=== PATIENT | female | born 1960 | race African-American/Black ===

== ENCOUNTER 2017-11-04 19:36 | Emergency (ER) | payer BC ==
[2017-11-04 19:53] VITALS: BP 172/93; PULSE 72; TEMP 98.5; BMI 45.1
--- NOTE | 2017-11-04 20:11 | PDOC ---
History of Present Illness - History of Present Illness Initial Comments: 11/04/17 20:52 Patient is a 57 F, with PMHx of depression, GERD, Hypertension, and DVT 2001 (1 week after taking control), who reports to the ER for 3 weeks of history of left shoulder/elbow pain. She describes her pain as a deep, achy feeling. She states her arm feels heavy and the pain in her shoulder feels similar to a deep panging you feel after hitting your elbow. She also described the feeling as similar to when she had her DVT from years ago and it is what prompted her to be seen in the ER. She says that she types a lot at work and it aches when she types. She states she took ibuprofen for the pain with little relief as well as Aleve with no relief. She states she experienced a recent brief episode of left-sided neck discomfort that resolved with massage. Denies numbness, chronic neck pain, pinched nerves. Denies recent injury to neck or shoulder. Denies chest pain, SOB. Social Hx: denies tobacco or EtOH use. Family Hx: Father:() Non-hodgkin's lymphoma; Mother: kidney cancer. Allergies: codeine, iodine,penicillins, shellfish, sulfa Medications: Amitrityline HCL 40 mg PO HS Symbicort 1 inh IH daily PRN Bupropion HCl[Wellbutrin XI] 150 mg PO daily Esomeprazole Magnesium 40 mg PO daily Hydrochlorothiazide 12.5 mg PO daily Montelukast Sodium [Singulair] 10 mg PO daily Ranitidine HCL 300 mg PO HS Sertraline HCL [Zoloft] 150 mg <Shantel Meier - Last Filed: 11/04/17 22:02> <Luz Long - Last Filed: 11/05/17 00:59> - General Chief Complaint: Pain Stated Complaint: LEFT SHOULDER TO ELBOW PAIN Time Seen by Provider: 11/04/17 19:38 Past History <Shantel Meier - Last Filed: 11/04/17 22:02> - Past Medical History Asthma: Yes COPD: No DVT: Yes (RIGHT LEG) GI Disorders: Yes HTN: Yes Psychiatric Problems: Yes - Suicide/Smoking/Psychosocial Hx Smoking History: Never smoked Hx Alcohol Use: Yes (OCCASIONAL) Drug/Substance Use Hx: No Substance Use Type: None <Luz Long - Last Filed: 11/05/17 00:59> - Past Medical History Allergies/Adverse Reactions: Allergies Allergy/AdvReac Type Severity Reaction Status Date / Time codeine Allergy Unknown Verified 11/04/17 19:38 iodine Allergy Unknown Verified 11/04/17 19:38 Penicillins Allergy Unknown Verified 11/04/17 19:38 shellfish derived Allergy Unknown Verified 11/04/17 19:38 Sulfa (Sulfonamide Allergy Unknown Verified 11/04/17 19:38 Antibiotics) Home Medications: Ambulatory Orders Amitriptyline HCl [Elavil -] 40 mg PO HS 11/04/17 Budesonide/Formeterol Fumarate [SYMBICORT 160/4.5mcg -] 1 inh IH DAILY PRN 11/04 Bupropion HCl [Wellbutrin Xl -] 150 mg PO DAILY 11/04/17 Diclofenac Sodium [Voltaren -] 75 mg PO BID PRN #14 tablet. 11/04/17 Esomeprazole Magnesium 40 mg PO DAILY 11/04/17 Hydrochlorothiazide [Hctz -] 12.5 mg PO DAILY 11/04/17 Montelukast Sodium [Singulair] 10 mg PO DAILY 11/04/17 Ranitidine HCl 300 mg PO HS 11/04/17 Sertraline HCl [Zoloft] 150 mg PO HS 11/04/17 Review of Systems - Review of Systems Comments:: 11/04/17 20:54 GENERAL/CONSTITUTIONAL: No fever or chills. No weakness. HEAD, EYES, EARS, NOSE AND THROAT: No change in vision. No ear pain or discharge. No sore throat. CARDIOVASCULAR: No chest pain or shortness of breath. RESPIRATORY: No cough, wheezing, or hemoptysis. GASTROINTESTINAL: No nausea, vomiting, diarrhea or constipation. GENITOURINARY: No dysuria, frequency, or change in urination. MUSCULOSKELETAL: + left shoulder and elbow 'achy' pain. No muscle swelling or pain. No neck or back pain. SKIN: No rash NEUROLOGIC: No headache, vertigo, loss of consciousness, or change in strength/ sensation. ENDOCRINE: No increased thirst. No abnormal weight change. HEMATOLOGIC/LYMPHATIC: No anemia, easy bleeding, or history of blood clots. ALLERGIC/IMMUNOLOGIC: No hives or skin allergy. <Shantel Meier - Last Filed: 11/04/17 22:02> *Physical Exam - Vital Signs Last Vital Signs Temp Pulse Resp BP Pulse Ox 98.5 F 72 18 172/93 99 11/04/17 19:37 11/04/17 19:37 11/04/17 19:37 11/04/17 19:37 11/04/17 19:37 - Physical Exam Comments: 11/04/17 20:55 GENERAL: Morbidly obese. Awake, alert, and fully oriented, in no acute distress HEAD: No signs of trauma EYES: PERRLA, EOMI, sclera anicteric, conjunctiva clear ENT: Auricles normal inspection, hearing grossly normal, nares patent, oropharynx clear without exudates. Moist mucosa NECK: Normal ROM, supple, no lymphadenopathy, JVD, or masses LUNGS: Breath sounds equal, clear to auscultation bilaterally. No wheezes, and no crackles HEART: Regular rate and rhythm, normal S1 and S2, no murmurs, rubs or gallops ABDOMEN: Soft, nontender, normoactive bowel sounds. No guarding, no rebound. No masses EXTREMITIES: Left UE - No evidence of tenderness, edema, or deformity. 5/5 strength of motor exam. The radial pulse was briskly palpable in the wrist and distal extremity was warm. Excellent capillary refill. Pain not reproducible with any movement to left UE. Normal range of motion, no edema. No clubbing or cyanosis. No cords, erythema, or tenderness NEUROLOGICAL: Cranial nerves II through XII grossly intact. Normal speech, normal gait SKIN: Warm, Dry, normal turgor, no rashes or lesions noted. <Shantel Meier - Last Filed: 11/04/17 22:02> - Vital Signs Last Vital Signs Temp Pulse Resp BP Pulse Ox 98.5 F 72 18 172/93 99 11/04/17 19:37 11/04/17 19:37 11/04/17 19:37 11/04/17 19:37 11/04/17 19:37 <Luz Long - Last Filed: 11/05/17 00:59> Heart Score/ECG Review - ECG Intrepretation Comment:: 11/04/17 21:40 Normal sinus rhythm Normal ECG Vent rate: 72 bpm <Shantel Meier - Last Filed: 11/04/17 22:02> ED Treatment Course - RADIOLOGY Radiograph Interpretation: 11/04/17 22:02 X-ray - left humerus Impression: No definite fracture in the left humerus. Reported by: Ramiro Caban DO 11/04/172149 US - left arm Impression: No evidence of left UE DVT. Reported by: Ramiro Caban DO 11/04/176 <Shantel Meier - Last Filed: 11/04/17 22:02> Medical Decision Making - Medical Decision Making Documentation has been prepared under my direction and personally reviewed by me in its entirety. I attest that this documented accurately reflects all work, treatment, procedures and medical decision making performed by me. As noted above, this 57-year-old woman with a history of hypertension/DVT presents with 3 week history of mid left upper arm pain. There is been no history of overuse or trauma. No previous history of this pain. There is been no chest pain/shortness of breath; there is been self-limited mild left sided neck pain but no history of chronic neck pain or recent neck injury. Exam as noted. No reproduction of pain on any maneuver during exam and the area is not tender. Differential diagnosis includes but not limited to musculoskeletal disease including bone mass, neurogenic pain secondary to disc disease or radiculopathy , myocardial ischemia with atypical radiation. Latter is much less likely since there is no change with exertion and pain has been stable for 3 weeks Results of workup as noted: No evidence of acute pathology on plain x-ray of the humerus. 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 Doppler duplex study of the upper arm is negative for DVT 12-lead EKG is normal without evidence of any ongoing myocardial ischemia/ infarction or other abnormality. Results discussed with the patient. Toradol 60 mg IM administered for anti-inflammatory effect. Musculoskeletal and neurogenic will need further workup. Patient does not have an orthopedist or neurologist and she will be given referral information for Dr. Meade and Dr. Weldon or transfusion aide for orthopedics and neurology respectively. The patient does not have a PCP at this time since her long time physician has just retired. Patient states that she will research for PCP close to where she lives ([facility]) or where she works ([facility] [facility]) She should return to the ER immediately if she develops chest pain/worsening arm pain/palpitations/shortness of breath <Luz Long - Last Filed: 11/05/17 00:59> *DC/Admit/Observation/Transfer <Shantel Meier - Last Filed: 11/04/17 22:02> <Luz Long - Last Filed: 11/05/17 00:59> Diagnosis at time of Disposition: Left arm pain - Discharge Dispostion Disposition: HOME Condition at time of disposition: Stable - Prescriptions Prescriptions: Diclofenac Sodium [Voltaren -] 75 mg PO BID PRN #14 tablet.dr KO Reason: Pain - Referrals Referrals: Handy Meade MD [Staff Physician] - 1 week Shawn Weldon MD [Staff Physician] - 1 week - Patient Instructions Printed Discharge Instructions: Peripheral Neuropathy Additional Instructions: Diclofenac 75 mg twice a day as needed; take with food Follow-up with orthopedist(Dr. Meade) within 1 week Follow-up with neurologist (Dr. Weldon) within 1 week Follow-up with new PCP as discussed within the next 1-2 weeks Return to ER if you have worsening pain/shortness of breath or chest pain Avoid strenuous activity involving upper body
[2017-11-04] MEDS ORDERED: KETOROLAC TROMETHAMINE 60 MG/2 ML VIAL IM ONE (22:30)
[2017-11-04] MEDS ORDERED: KETOROLAC TROMETHAMINE 60 MG/2 ML VIAL ONE (22:32)
--- NOTE | 2017-11-09 13:12 | EKG ---
Test Reason : Blood Pressure : / mmHG Vent. Rate : 072 BPM Atrial Rate : 072 BPM P-R Int : 138 ms QRS Dur : 080 ms QT Int : 422 ms P-R-T Axes : 030 -12 015 degrees QTc Int : 462 ms NORMAL SINUS RHYTHM Delayed R wave progression NONSPECIFIC T WAVE ABNORMALITY NO PREVIOUS ECGS AVAILABLE Confirmed by DAVE VELASCO MD ([id number]) on 11/09/2017 1:12:11 PM Referred By: MD DAVIS Confirmed By:DAVE VELASCO MD
== END 2017-11-04 22:40 | disposition home or self-care (01) ==
LOC: FER 19:36
PROC: 3E0233Z Introduction of Anti-inflammatory into Muscle, Percutaneous Approach (ICD-10-PCS; principal; 2017-11-04)
DX: M79.602 Pain in left arm (principal); I10 Essential (primary) hypertension; F32.9 Major depressive disorder, single episode, unspecified; K21.9 Gastro-esophageal reflux disease without esophagitis; Z86.718 Personal history of other venous thrombosis and embolism
CPT/HCPCS: 73060-TC-LT-FY; 93005; 93971; 99282-25